=== PATIENT | female | born 1970 | race African-American/Black ===

== ENCOUNTER 2021-03-27 08:25 | Emergency (ER) | payer OTHER ==
[~2021-03-27] VITALS: Ht 172.7 cm; Wt 127.0 kg
[2021-03-27 09:13] LABS: BASOPHILS % 0.4 % (0.0-2.0); EOSINOPHILS % 0.8 % (0.0-5.0); HEMOGLOBIN. 11.3 g/dL (12.0-16.0); LYMPHOCYTES % 21.1 % (20.0-50.0); MEAN CORPUSCULAR HEMOGLOBIN 27.7 pg (28.0-32.0); MEAN CORPUSCULAR VOLUME 83.4 fL (81.0-99.0); MEAN PLATELET VOLUME 9.3 fl (7.4-10.4); MONOCYTES % 8.2 % (2.0-8.0); NEUTROPHILS % 69.5 % (40.0-76.0); PLATELET 339 x1000/uL (130-400); RED BLOOD CELL COUNT 4.07 mill/uL (4.2-5.4); RED CELL DISTRIBUTION WIDTH 16.4 % (11.6-14.6)
[2021-03-27 09:29] LABS: CHLORIDE 107 mEq/L (98-107)
[2021-03-27] MEDS ORDERED: IBUP-2029 MT (10:24)
[2021-03-27] MEDS ORDERED: ACETAMINOPHEN 325MG TABLET PO ONE (10:30)
[2021-03-27 15:00] VITALS: BP 122/62
== END 2021-03-27 18:25 | disposition home or self-care (01) ==
LOC: ER 08:49
DX: U07.1 COVID-19 (principal); B34.9 Viral infection, unspecified; I10 Essential (primary) hypertension; Z86.16 Personal history of COVID-19
CPT/HCPCS: 36415; 71045; 80053; 85025; 93005; 99285

== ENCOUNTER 2021-03-30 23:06 | Emergency (ER) | payer OTHER ==
[~2021-03-30] VITALS: Ht 175.3 cm; Wt 87.0 kg
[~2021-03-30 23:06] MED LIST: IBUP-2029 MT
[2021-03-31 00:27] LABS: BASOPHILS % 0.3 % (0.0-2.0); EOSINOPHILS % 0.5 % (0.0-5.0); HEMATOCRIT. 35.4 % (36.0-48.0); HEMOGLOBIN. 11.6 g/dL (12.0-16.0); LYMPHOCYTES % 18.7 % (20.0-50.0); MEAN CORPUSCULAR HEMOGLOBIN 27.3 pg (28.0-32.0); MEAN CORPUSCULAR VOLUME 83.1 fL (81.0-99.0); MEAN PLATELET VOLUME 9.6 fl (7.4-10.4); NEUTROPHILS % 73.5 % (40.0-76.0); PLATELET 320 x1000/uL (130-400); RED BLOOD CELL COUNT 4.26 mill/uL (4.2-5.4); RED CELL DISTRIBUTION WIDTH 16.4 % (11.6-14.6)
[2021-03-31 00:32] LABS: CHLORIDE 103 mEq/L (98-107)
[2021-03-31 04:08] VITALS: BP 109/65
== END 2021-03-31 04:09 | disposition home or self-care (01) ==
LOC: ER 23:06
DX: R06.02 Shortness of breath (principal); I10 Essential (primary) hypertension; Z86.16 Personal history of COVID-19
CPT/HCPCS: 36415; 71045; 80053; 83880; 84484; 85025; 85379; 93005; 99285